=== PATIENT | female | born 1950 | race Two or more races ===

== ENCOUNTER 2017-09-04 09:06 | Outpatient (CLI) | payer OTHER ==
[~2017-09-04 09:06] MED LIST: CRESTOR10 MG; HUMULIN 70/30 V10 ML; NEURONTIN
== END 2017-09-04 09:24 | disposition home or self-care (01) ==
LOC: RAD 09:06
DX: M19.90 Unspecified osteoarthritis, unspecified site (principal); M12.89 Other specific arthropathies, not elsewhere classified, multiple sites

== ENCOUNTER → 2018-05-14 | Outpatient (CLI) | payer OTHER | END | disposition home or self-care (01) | LOC: RAD 501 10:12 | DX: J44.9 Chronic obstructive pulmonary disease, unspecified (principal); R10.9 Unspecified abdominal pain ==

== ENCOUNTER 2020-01-14 07:41 | Emergency (ER) | payer OTHER ==
[~2020-01-14] VITALS: Ht 165.1 cm; Wt 81.6 kg
[2020-01-14] MEDS ORDERED: DICLOFENAC POTA50 MG PO (08:29)
[2020-01-14] MEDS ORDERED: BACTRIM DS TAB1 EACH PO (08:29)
[2020-01-14] MEDS ORDERED: INTESTINEX680 M1 PO (08:29)
== END 2020-01-14 08:39 | disposition home or self-care (01) ==
LOC: ER 07:41
DX: L03.114 Cellulitis of left upper limb (principal)

== ENCOUNTER → 2021-03-17 07:33 | Outpatient (CLI) | payer OTHER ==
[~2021-03-17 07:33] MED LIST changes: +BACTRIM DS TAB1 EACH PO; +DICLOFENAC POTA50 MG PO; +INTESTINEX680 M1 PO
== END | disposition home or self-care (01) ==
LOC: NUCLEAR 07:00
PROVIDERS: ATTEND Internal Medicine Cardiovascular Disease
DX: I50.1 Left ventricular failure, unspecified (principal); R07.89 Other chest pain
CPT/HCPCS: 78452; 93017; A9500; J0153

== ENCOUNTER → 2022-04-17 | Outpatient (CLI) | payer OTHER | END | disposition home or self-care (01) | LOC: MRI 08:26 | PROVIDERS: ATTEND Neuromusculoskeletal Medicine & OMM | DX: R41.3 Other amnesia (principal); D49.6 Neoplasm of unspecified behavior of brain; G40.909 Epilepsy, unspecified, not intractable, without status epilepticus | CPT/HCPCS: 70553; Q9965 ==

== ENCOUNTER 2022-08-28 07:28 | Outpatient (CLI) | payer OTHER | END 2022-08-28 07:29 | disposition home or self-care (01) | LOC: NUCLEAR 07:28 | PROVIDERS: ATTEND Internal Medicine | DX: R07.9 Chest pain, unspecified (principal); I11.9 Hypertensive heart disease without heart failure; E78.2 Mixed hyperlipidemia; I25.118 Atherosclerotic heart disease of native coronary artery with other forms of angina pectoris | CPT/HCPCS: 78452; 93017; A9500; J0153 ==

== ENCOUNTER 2023-07-08 07:30 | Outpatient (CLI) | payer OTHER | END 2023-07-08 07:36 | disposition home or self-care (01) | LOC: RAD 07:30 | PROVIDERS: ATTEND Ophthalmology | DX: Z01.811 Encounter for preprocedural respiratory examination (principal) ==

== ENCOUNTER 2023-07-08 08:31 | Outpatient (CLI) | payer OTHER | END 2023-07-08 08:37 | disposition home or self-care (01) | LOC: EKG 08:31 | PROVIDERS: ATTEND Ophthalmology | DX: I10 Essential (primary) hypertension (principal) ==

== ENCOUNTER 2024-02-26 09:25 | Outpatient (CLI) | payer OTHER | END 2024-02-26 09:34 | disposition home or self-care (01) | LOC: RAD 09:25 | PROVIDERS: ATTEND Internal Medicine Cardiovascular Disease | DX: M12.9 Arthropathy, unspecified (principal) ==

== ENCOUNTER 2024-05-28 07:53 | Outpatient (CLI) | payer OTHER | END 2024-05-28 08:02 | disposition home or self-care (01) | LOC: TOM 07:53 | PROVIDERS: ATTEND Neuromusculoskeletal Medicine & OMM | DX: I65.22 Occlusion and stenosis of left carotid artery (principal) | CPT/HCPCS: 70498; Q9965 ==